=== PATIENT | male | born 1960 | race African-American/Black ===

== ENCOUNTER 2017-08-08 11:41 | Day surgery (SDC) | payer BC ==
[2017-08-08] MEDS ORDERED: LACTATED RINGERS 1,000 ML IV ONE (12:08)
[2017-08-08] MEDS ORDERED: fentaNYL 250 MCG/5 ML VIAL IVP ONE (13:10)
[2017-08-08] MEDS ORDERED: MIDAZOLAM 2 MG/2 ML VIAL IVP ONE (13:10)
[2017-08-08 14:20] VITALS: BP 116/65
== END 2017-08-08 11:42 | disposition home or self-care (01) ==
LOC: SDS 11:41
PROVIDERS: ATTEND Surgery
PROC: 0DBL8ZX Excision of Transverse Colon, Via Natural or Artificial Opening Endoscopic, Diagnostic (ICD-10-PCS; principal; 2017-08-08 13:00)
DX: Z12.11 Encounter for screening for malignant neoplasm of colon (principal); D12.3 Benign neoplasm of transverse colon; I10 Essential (primary) hypertension
CPT/HCPCS: 45380; J3010; J7120; 88305